=== PATIENT | female | born 1940 | race Caucasian/White ===

== ENCOUNTER 2024-06-13 16:39 | Inpatient (IN) | payer MEDICARE, OTHER ==
[~2024-06-13] VITALS: Ht 170.2 cm; Wt 79.2 kg
[2024-06-13 22:11] VITALS: BP 116/61; TEMP 98.9; O2SAT 92
[2024-06-13] MEDS ORDERED: AMLO2.5T4 PO (22:33)
[2024-06-13] MEDS ORDERED: SPIR25TA PO (22:33)
[2024-06-13] MEDS ORDERED: VANC750V2 IV (22:33)
[2024-06-13] MEDS ORDERED: RXVAN IV (22:33)
[2024-06-13] MEDS ORDERED: METF-442 PO (22:33)
[2024-06-13] MEDS ORDERED: ACET325C7 PO (22:33)
[2024-06-13] MEDS ORDERED: PROP80TA4 PO (22:33)
[2024-06-13] MEDS ORDERED: ATOR10TA PO (22:33)
[2024-06-13] MEDS ORDERED: CLOT15CR27 TP (22:33)
[2024-06-13] MEDS ORDERED: ENOX40DI SUBCUT (22:33)
[2024-06-13] MEDS ORDERED: CEFT1VIA15 IV (22:33)
[2024-06-13] MEDS ORDERED: LOSA50TA39 PO (22:33)
[2024-06-14 06:20] VITALS: BP 124/66; TEMP 98.7; O2SAT 93
[2024-06-14] MEDS ORDERED: DEXTROSE 50% 50 ML DISP.SYRIN IV PRN (10:00)
[2024-06-14] MEDS: AMLODIPINE 2.5 MG TABLET PO SCH (10:10)
[2024-06-14] MEDS: ENOXAPARIN SODIUM 40 MG/0.4 ML DISP.SYRIN SQ SCH (10:44)
[2024-06-14] MEDS: BLOOD SUGAR DIAGNOSTIC 1 EACH STRIP VI SCH (11:24)
[2024-06-14 16:04] VITALS: BP 147/78; TEMP 97.7; O2SAT 96
[2024-06-14] MEDS: LOSARTAN POTASSIUM 50 MG TABLET PO SCH (16:40)
[2024-06-14] MEDS: CLOTRIMAZOLE 1% CREAM 30 GM TUBE TP SCH (16:40)
[2024-06-14] MEDS: ACETAMINOPHEN 325 MG TABLET PO PRN (18:37)
[2024-06-14 19:41] VITALS: BP 145/99; TEMP 98.4; O2SAT 94
[2024-06-14] MEDS: LORAZEPAM 1 MG TABLET PO PRN (20:13)
[2024-06-14] MEDS: ATORVASTATIN 10 MG TABLET PO SCH (20:13)
[2024-06-14] MEDS: CEphaleXIN 500 MG CAPSULE PO SCH (20:13)
[2024-06-15] MEDS: PANTOPRAZOLE SODIUM 40 MG TABLET.DR PO SCH (07:30)
[2024-06-15] MEDS: SPIRONOLACTONE 25 MG TABLET PO SCH (09:38)
[2024-06-15] MEDS: PROPRANOLOL HCL 40 MG TABLET PO SCH (09:38)
[2024-06-15] MEDS: INSULIN REGULAR, HUMAN 1000 UNIT/10 ML VIAL SQ PRN (12:11)
[2024-06-15 17:52] VITALS: BP 104/65; TEMP 98; O2SAT 99
[2024-06-15 20:10] VITALS: BP 107/64; TEMP 97.6; O2SAT 96
[2024-06-16 06:03] VITALS: BP 109/53; TEMP 97.5; O2SAT 95
[2024-06-16 11:52] LABS: THYROID STIMULATING HORMONE 1.986 mIU/mL (0.358-3.740)
[2024-06-16 16:38] VITALS: BP 130/69; TEMP 97.9; O2SAT 97
[2024-06-16 20:18] VITALS: BP 112/67; TEMP 98; O2SAT 94
[2024-06-17 10:59] VITALS: BP 111/64; TEMP 97.5; O2SAT 97
[2024-06-17 15:45] VITALS: BP 131/69; TEMP 97.6; O2SAT 96
[2024-06-17 20:30] VITALS: BP 136/75; TEMP 97.4; O2SAT 99
[2024-06-18] MEDS: GLUCERNA SHAKE 237 ML CAN PO SCH (08:46)
[2024-06-18 15:53] VITALS: BP 136/66; TEMP 97.7; O2SAT 99
[2024-06-18 20:08] VITALS: BP 121/68; TEMP 97.3; O2SAT 95
[2024-06-18] MEDS: QUETIAPINE FUMARATE 25 MG TABLET PO SCH (20:31)
[2024-06-19 06:10] VITALS: BP 118/59; TEMP 97.8; O2SAT 97
[2024-06-19 16:12] VITALS: BP 140/72; TEMP 97.8; O2SAT 96
[2024-06-19 20:00] VITALS: BP 102/54; TEMP 98.1; O2SAT 95
[2024-06-20 16:03] VITALS: BP 107/59; TEMP 97.8; O2SAT 98
[2024-06-20 20:00] VITALS: BP_SYST 11; BP_SYST 111; BP_DIAS 54; TEMP 98.2; O2SAT 95
[2024-06-21 06:00] VITALS: BP 120/59; TEMP 98.4; O2SAT 100
[2024-06-21 16:00] VITALS: BP 95/59; TEMP 97.8; O2SAT 97
[2024-06-21 20:00] VITALS: BP 111/49; TEMP 98; O2SAT 95
[2024-06-21] MEDS: QUETIAPINE FUMARATE 25 MG TABLET PO SCH (20:48)
[2024-06-22 06:00] VITALS: BP 121/72; TEMP 98.4; O2SAT 95
[2024-06-22 16:30] VITALS: BP 105/53; TEMP 97.6; O2SAT 99
[2024-06-22 20:14] VITALS: BP 121/64; TEMP 97.8; O2SAT 94
[2024-06-23 16:27] VITALS: BP 105/62; TEMP 98.1; O2SAT 97
[2024-06-23 19:42] VITALS: BP 99/60; TEMP 97.8; O2SAT 95
[2024-06-23] MEDS ORDERED: INSULIN REGULAR, HUMAN 1000 UNIT/10 ML VIAL ONE (20:16)
[2024-06-24 05:30] VITALS: BP 106/55; TEMP 97.9; O2SAT 96
[2024-06-24 15:34] VITALS: BP 102/54; TEMP 98.4; O2SAT 96
[2024-06-24 20:00] VITALS: BP 115/61; TEMP 97.6; O2SAT 97
[2024-06-25 06:00] VITALS: BP 113/81; TEMP 98.4; O2SAT 96
[2024-06-25 09:16] VITALS: BP 131/55; O2SAT 93
[2024-06-25 16:02] VITALS: BP 115/54; TEMP 98.8; O2SAT 95
[2024-06-25 20:00] VITALS: BP 138/72; TEMP 98.4; O2SAT 95
[2024-06-26 06:00] VITALS: BP 113/46; TEMP 97.8; O2SAT 97
[2024-06-26 15:58] VITALS: BP 97/52; TEMP 98.1; O2SAT 100
[2024-06-26] MEDS: LORAZEPAM 0.5 MG TABLET PO PRN (18:36)
[2024-06-26 20:30] VITALS: BP 138/67; TEMP 97.4; O2SAT 97
[2024-06-27] MEDS: CYANOCOBALAMIN 1,000 MCG TABLET PO SCH (08:50)
[2024-06-27] MEDS: FOLIC ACID 1 MG TABLET PO SCH (13:59)
[2024-06-27 20:00] VITALS: BP 128/71; TEMP 97.8; O2SAT 99
[2024-06-28 05:53] VITALS: BP 120/62; TEMP 97.8; O2SAT 99
== END 2024-06-28 15:20 | DRG 689 ==
PROVIDERS: ADMIT Physical Medicine & Rehabilitation Pain Medicine; ATTEND Physical Medicine & Rehabilitation Pain Medicine
DX: N39.0 Urinary tract infection, site not specified (principal); G93.41 Metabolic encephalopathy; F02.84 Dementia in other diseases classified elsewhere, unspecified severity, with anxiety; L03.116 Cellulitis of left lower limb; F02.82 Dementia in other diseases classified elsewhere, unspecified severity, with psychotic disturbance; E11.40 Type 2 diabetes mellitus with diabetic neuropathy, unspecified; E78.5 Hyperlipidemia, unspecified; G30.9 Alzheimer's disease, unspecified; I10 Essential (primary) hypertension; B96.1 Klebsiella pneumoniae [K. pneumoniae] as the cause of diseases classified elsewhere; S81.812D Laceration without foreign body, left lower leg, subsequent encounter; X58.XXXD Exposure to other specified factors, subsequent encounter; Z86.011 Personal history of benign neoplasm of the brain; R53.1 Weakness; F29 Unspecified psychosis not due to a substance or known physiological condition; Z87.891 Personal history of nicotine dependence; R54 Age-related physical debility
CPT/HCPCS: 36415; 70450; 83921; 84443; 97535-GO-CO; J1650; J1815; J3490